=== PATIENT | female | born 1930 | race Caucasian/White ===

== ENCOUNTER 2017-02-24 11:31 | Day surgery (SDC) | payer OTHER ==
[2017-02-24 12:12] VITALS: PULSE 74
--- NOTE | 2017-02-24 13:28 | PDANEPAE ---
ANE History of Present Illness EGD EUS ANE Past Medical History - Cardiovascular History Hx Hypertension: Yes Hx Arrhythmias: No Hx Chest Pain: No Hx Coronary Artery / Peripheral Vascular Disease: Yes Hx CHF / Valvular Disease: No Hx Palpitations: No - Pulmonary History Hx Asthma/Reactive Airway Disease: Yes Hx Oxygen in Use at Home: Yes O2 in Use at Home (L/minute): 2L with cpap Hx Sleep Apnea: Yes Sleep Apnea Screening Result - Last Documented: Positive Pulmonary History Comment: asthma allery induced - Neurologic History Hx Cerebrovascular Accident: No Hx Seizures: No Hx Dementia: No - Endocrine History Hx Diabetes: No Hypothyroid: No Hyperthyroid: No Obesity: moderate Endocrine History Comment: pre-diabetic - Renal History Hx Renal Disorders: Yes Renal History Comment: pt is seeing Dr Giraldo - Liver History Hx Hepatic Disorders: No - Neurological & Psychiatric Hx Hx Neurological and Psychiatric Disorders: Yes Neurological / Psychiatric History Comment: 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 stent 4yrs ago. bilat tka ANE Review of Systems Review of Systems: - Exercise capacity METS (RN): 4 METS ANE Patient History - Allergies Allergies/Adverse Reactions: latex Allergy (Mild, Verified 02/19/17 14:34) Rash cats Allergy (Uncoded 02/19/17 14:34) enviromental Allergy (Uncoded 02/19/17 14:34) fire ant stings Allergy (Uncoded 02/19/17 14:34) wasp stings Allergy (Uncoded 02/19/17 14:34) - Home Medications Home medications: home medication list seen and reviewed Home Medications: Albuterol 02/19/17 [Last Taken 02/21/17] Aspirin 81mg (*) 02/19/17 [Last Taken 02/23/17 08:00] Crestor 02/19/17 [Last Taken 02/23/17 08:00] Gabapentin 02/19/17 [Last Taken 02/24/17 08:00] Lisinopril 02/19/17 [Last Taken 02/24/17 08:00] Pantoprazole Sodium 02/19/17 [Last Taken 02/24/17 08:00] Simvastatin 02/19/17 [Last Taken 02/23/17 12:00] Singulair 02/19/17 [Last Taken 02/23/17 22:00] Triamterene 02/19/17 [Last Taken 02/23/17 08:00] Verapamil HCl 02/19/17 [Last Taken 02/24/17 08:00] - NPO status NPO Since - Liquids (Date): 02/23/17 NPO Since - Liquids (Time): 23:00 NPO Since - Solids (Date): 02/23/17 NPO Since - Solids (Time): 23:00 - Anes Hx Anes Hx: no prior problems - Smoking Hx Smoking Status: Never smoked Marijuana use: No - Alcohol Use Alcohol Use: Occasionally - Family Anes Hx Family Anes Hx: none Family Hx Anesthesia Complications: none ANE Labs/Vital Signs - Vital Signs Blood Pressure: 118/58 Heart Rate: 74 Respiratory Rate: 17 O2 Sat (%): 90 Height: 162.56 cm Weight: 92.533 kg ANE Physical Exam - Airway Neck exam: decreased ROM Mallampati Score: Class 2 Mouth exam: dentures - Pulmonary Pulmonary: no respiratory distress, no rales or rhonchi - Cardiovascular Cardiovascular: regular rate and rhythym, no murmur, rub, or gallop - ASA Status ASA Status: III ANE Anesthesia Plan Anesthesia Plan: GA w LMA Total IV Anesthesia: Yes
[2017-02-24] MEDS ORDERED: INDOMETHACIN 50 MG SUPP PR PRN (14:04)
--- NOTE | 2017-02-24 14:04 | PDGENHP ---
History & Physical Chief Complaint: abnl imaging History of Present Illness: 87 year old female presents for evaluation of abnl imaging. Sis- panc ca. Pertinent Past, Social, Family History: PMHx: JUAN F. FaMHx: panc ca Relevant Physical Exam: HEENT: anicteric. CV: RRR +s1s2. Lungs: CTAB No w/r/ r. Abd: soft, nt, + bs Cardiorespiratory Assessment: ASA 3. Ma 2
[2017-02-24] MEDS ORDERED: LR 500 ML IV PRN (14:10)
[2017-02-24] MEDS ORDERED: NALOXONE HCL 0.4 MG/ML INJ IVP PRN (14:10)
[2017-02-24] MEDS ORDERED: ONDANSETRON 4 MG/2 ML VIAL IVP PRN (14:10)
[2017-02-24] MEDS ORDERED: ALBUTEROL 3 ML DEYVIAL IH PRN (14:10)
[2017-02-24] MEDS ORDERED: PROPOFOL 200 MG/20 ML VIAL ONE ×3 (14:11→14:42)
[2017-02-24] MEDS ORDERED: NS 500 ML IV SCH (14:15)
[2017-02-24] MEDS ORDERED: LIDOCAINE 2% 5 ML SDV ONE (14:54)
--- NOTE | 2017-02-24 15:01 | POSTANESTH ---
Post Anesthetic Evaluation Cardiovascular Status: Normal, Stable, Similar to Pre-Op Cond Respiratory Status: Normal, Stable, Similar to Pre-op Cond. Level of Consciousness/Mental Status: Can Participate in Eval Pain Control: Adequate, Prn Tx Ordered Nausea/Vomiting Control: Adequate, Prn Tx Ordered Complications Possibly Related to Anesthesia: None Noted
[2017-02-24 15:07] VITALS: TEMP 97.2
[2017-02-24 15:57] VITALS: RESP 11
[2017-02-24 16:23] VITALS: BP 117/49; O2SAT 97
--- NOTE | 2017-03-02 16:34 | GIREPORT ---
[facility] - Endoscopy Department Patient Name: Nia Petersen Procedure Date: 02/24/2017 2:08 PM Patient Type: Outpatient Attending MD/ ER Physician: Fransisco Beckford MD Procedure: Upper EUS Indications: Suspected mass in pancreas on CT scan, Weight loss Patient Profile: 87 year old female presents for evaluation of abnormal imaging and weig ht loss. Providers: Fransisco Beckford MD Medicines: Monitored Anesthesia Care Complications: No immediate complications. Estimated blood loss: Minimal. Description of Procedure: After obtaining informed consent, the endoscope was passed under direct vision. Throughout the procedure, the patient's blood pressure, pulse, and oxygen saturations were monitored continuously. The Endoscope was intro duced through the mouth, and advanced to the second part of duodenum. The Endosonoscope was introduced through the mouth, and advanced to the sec ond part of duodenum. The upper EUS was accomplished without difficulty. Th e esophagus, stomach, and duodenum were visualized endosonographically. T he patient tolerated the procedure well. Findings: Endoscopic Finding : The Z-line was irregular. Biopsies were taken with a cold forceps for histology. A small hiatal hernia was present. A few small sessile polyps were found on the greater curvature of the stomach. Biopsies were taken with a cold forceps for histology. Patchy mildly erythematous mucosa was found in the gastric body and in the gastric antrum. Biopsies were taken with a cold forceps for histology. The examined duodenum was normal. Endosonographic Finding : An irregular mass was identified in the pancreatic head. The mass was hypoechoic. The mass measured 23 mm by 16 mm in maximal cross-sectional diameter. The endosonographic borders were poorly-defined. The remainde r of the pancreas was examined. The endosonographic appearance of parenchyma and the upstream pancreatic duct indicated duct dilation. The pancreatic du ct was 5mm in the head. Fine needle aspiration for cytology was performed. Color Doppler imaging was utilized prior to needle puncture to confirm a lack of significant vascular structures within the needle path. Two pas ses were made with the 25 gauge needle using a transduodenal approach. A st ylet was used. A furnace checker was present and performed a preliminary cytologi c examination. Preliminary cytology is suspicious for adenocarcinoma (fin al results are pending). No vascular invasion was noted. There was no sign of significant endosonographic abnormality in the visualized portion of the liver. No masses were identified. No lymphadenopathy seen. Estimated Blood Loss: Estimated blood loss was minimal. Post Op Diagnosis: - Z-line irregular. Biopsied. - Small hiatal hernia. - A few gastric polyps. Biopsied. - Erythematous mucosa in the gastric body and antrum. Biopsied. - Normal examined duodenum. - A mass was identified in the pancreatic head. Fine needle aspiration performed. - There was no evidence of significant pathology in the visualized port ion of the liver. Recommendation: - Discharge patient to home (with escort). - Clear liquid diet. - Continue present medications. - Await cytology results and await path results. - Thank you for allowing me to participate in the care of your patient. Fransisco Beckford MD Fransisco Beckford MD 03/02/2017 4:34:18 PM This report has been signed electronicallyFransisco Beckford MD Number of Addenda: 0 Note Initiated On: 02/24/2017 2:08 PM [email or web address]
== END 2017-02-24 16:45 | disposition home or self-care (01) ==
LOC: FSGY 11:31
PROVIDERS: ATTEND Internal Medicine Gastroenterology
PROC: 0FBG8ZX Excision of Pancreas, Via Natural or Artificial Opening Endoscopic, Diagnostic (ICD-10-PCS; principal; 2017-02-24 13:15)
PROC: 0DB78ZX Excision of Stomach, Pylorus, Via Natural or Artificial Opening Endoscopic, Diagnostic (ICD-10-PCS; principal; 2017-02-24 13:15)
DX: C25.0 Malignant neoplasm of head of pancreas (principal); K29.50 Unspecified chronic gastritis without bleeding; K31.7 Polyp of stomach and duodenum; K44.9 Diaphragmatic hernia without obstruction or gangrene
CPT/HCPCS: J2704